=== PATIENT | male | born 1970 | race Two or more races ===

== ENCOUNTER 2018-07-28 06:34 | Day surgery (SDC) | payer OTHER ==
[2018-07-28] MEDS ORDERED: HYDROMORPHONE INJ 2 MG/ML DISP.SYRIN ONE (08:06)
[2018-07-28] MEDS ORDERED: MIDAZOLAM HCL 2 MG/2ML VIAL ONE (08:07)
[2018-07-28] MEDS ORDERED: ROCURONIUM BROMIDE 50 MG/5 ML ONE (08:14)
[2018-07-28] MEDS ORDERED: SEVOFLURANE 250 ML BOTTLE IH ONE (08:52)
[2018-07-28] MEDS ORDERED: BUPIVACAINE 0.5 % PF 150 MG/30 ML VIAL ONE ×2 (09:00→09:26)
== END 2018-07-28 11:43 | disposition home or self-care (01) ==
LOC: DS 06:34
PROVIDERS: ATTEND Specialist
DX: M75.41 Impingement syndrome of right shoulder (principal); M65.811 Other synovitis and tenosynovitis, right shoulder; M24.011 Loose body in right shoulder; E78.5 Hyperlipidemia, unspecified; Z98.890 Other specified postprocedural states
CPT/HCPCS: 88304-TC; 88311-TC; A4217; J0330; J0690; J1100; J1170; J1200; J2250; J2405; J2704; J3490; J7120